=== PATIENT | female | born 1950 | race Caucasian/White ===

== ENCOUNTER 2020-08-03 13:03 | Emergency (ER) | payer MEDICARE ==
[2020-08-03] MEDS ORDERED: NORCO 5-325 TA1 EACH PO (18:48)
== END 2020-08-03 18:58 | disposition home or self-care (01) ==
LOC: FER 13:03
DX: S52.502A Unspecified fracture of the lower end of left radius, initial encounter for closed fracture (principal); S62.311A Displaced fracture of base of second metacarpal bone, left hand, initial encounter for closed fracture; I10 Essential (primary) hypertension; Z23 Encounter for immunization; W10.9XXA Fall (on) (from) unspecified stairs and steps, initial encounter; Y92.009 Unspecified place in unspecified non-institutional (private) residence as the place of occurrence of the external cause
CPT/HCPCS: 73110; 73130; 90471; 90714